=== PATIENT | female | born 1945 | race Caucasian/White ===

== ENCOUNTER → 2017-06-07 | Outpatient (CLI) | payer OTHER ==
[~2017-06-07] MED LIST: APIX1TAB3 PO; BNC/40 PO; CALC600T9 PO; CARV25TA2 PO; CETI10TA10 PO; CYAN1SUB2; CYAN5000 SL; FAMC1TAB PO; FLUT1INH INH; HYDR25TA4 PO; IBAN150T PO; LORA10CA2 PO; MAGN400T5 PO; NRV/10 PO; OMEP20CA59 PO; POTA-327 PO; PRVHFAIN; VENL150C56 PO; ZCR40 PO; ZINC25TA PO
[2017-06-07 14:22] LABS: ESTIMATED AVERAGE GLUCOSE 128 mg/dl; HA1C FLAG Normal (Normal)
[2017-06-07 14:43] LABS: ALT/SGPT 24 U/L (12-78); AST/SGOT 17 U/L (15-37); BLOOD UREA NITROGEN 16 mg/dl (7-18); BUN/CREATININE RATIO 23.9 (10-20); CALCIUM 8.4 mg/dl (8.5-10.1); CARBON DIOXIDE 26 mmol/L (21-32); CHLORIDE 107 mmol/L (98-107); CREATININE 0.66 mg/dl (0.60-1.20); GLUCOSE 108 mg/dl (70-99); POTASSIUM 3.7 mmol/L (3.5-5.1); SODIUM 141 mmol/L (136-145)
[2017-06-07 14:45] LABS: CHOLESTEROL 149 mg/dl (0-200); CHOLESTEROL/HDL RATIO 2.3; HDL CHOLESTEROL 64 mg/dl; LDL CHOLESTEROL CALCULATED 70 mg/dl; TRIGLYCERIDES 76 mg/dl (0-150); VERY LOW DENSITY LIPOPROT CALC 15 mg/dl
== END | disposition home or self-care (01) ==
LOC: C.LABMFLN 10:20
PROVIDERS: ATTEND Family Medicine
DX: E78.00 Pure hypercholesterolemia, unspecified (principal); I10 Essential (primary) hypertension; R73.03 Prediabetes

== ENCOUNTER → 2017-11-22 | Outpatient (CLI) | payer OTHER ==
--- NOTE | 2017-11-25 18:51 | POLYSOMNOGRAPH REPORT ---
CLINICAL DATA: The patient is a 72-year-old female who has a history of snoring and nocturnal dyspnea. She thinks she stops breathing when she sleeps. Her Ruskin Sleepiness Scale score is 7. She has a history of both hypertension and atrial fibrillation. She was referred for this study by Nerissa Jain PA-C. On the evening of 11/22/2017, a home sleep apnea test was performed using the Foldees type 3 monitor. RECORDING RESULTS: Total recording time was 10 hours. The patient's estimated sleep time was 9.6 hours. RESPIRATORY DATA: There were a total of 38 respiratory events including 2 obstructive apneas and 36 hypopneas. Hypopneas were scored according to the 4% desaturation rule. The FRANK was 4.0. This is at the upper limits of normal. The maximum respiratory event was 26 seconds. OXIMETRY DATA: The mean saturation for the night was 87%. The minimum saturation was 72%. The estimated time with saturations less than 89% was 367 minutes. HEART RATE DATA: The cardiac rates had a minimum of 54 and a mean heart rate of 68. SNORING DATA: Snoring was present throughout the night. IMPRESSIONS: 1. No definite evidence of significant obstructive sleep apnea. 2. Significant nocturnal hypoxia. RECOMMENDATIONS: 1. If the patient is not already on nocturnal oxygen therapy, would suggest doing an overnight pulse oximetry study to see if she is a candidate for nocturnal oxygen therapy. 2. Consideration could be given to doing an in-lab diagnostic polysomnography if the suspicion for sleep apnea remains very strong. Typically, home sleep studies may underestimate the amount of sleep apnea. 3. The patient has an elevated BMI of 37.97. Weight loss is advised.
== END | disposition home or self-care (01) ==
LOC: C.NEUR 11:14
PROVIDERS: ATTEND Physician Assistant
DX: R06.83 Snoring (principal)

== ENCOUNTER → 2017-12-02 | Outpatient (CLI) | payer OTHER ==
[~2017-12-02] VITALS: Ht 152.4 cm; Wt 92.9 kg
[2017-12-02 15:48] VITALS: BP 137/85; PULSE 87; Ht 152.4 cm; Wt 92.9 kg
== END | disposition home or self-care (01) ==
LOC: C.NEUR 13:52
PROVIDERS: ATTEND Physician Assistant
DX: G47.30 Sleep apnea, unspecified (principal); G47.19 Other hypersomnia

== ENCOUNTER → 2017-12-22 | Outpatient (CLI) | payer OTHER ==
--- NOTE | 2017-12-23 06:32 | PAP/PSG TECHNICIAN REPORT ---
[facility] Food Tester Polysomnogram Report Study name: None Report date: 12/23/2017 Study date: 12/22/2017 Referring Physician: Nerissa Jain PA-C, PA-C Name: SMOKER, PIERRE Connors Interpreting Physician: Hood Lozano D.O. Date of : 1945 Food Tester: Radha Castillo [facility]. Sex: Female Age: 72 Study Type: PSG Weight: 204 lbs Height: 72 years, Height 5' 0" BMI: 39.84 Medications: BREO ELIPTA 200 MCG/INH, VIT B-12 5000 MCG, FAMCICLOVIR 500 MG, ELIQUIS 5 MG, FUROSEMIDE 40 MG, PROAIR HFA, VENLAFAXINE 150 MG, VALSARTAN 80 MG, MONTELUKAST 10 MG, ALBUTEROL SULFATE, POTASSIUM CHLORIDE 10 MEQ, HYDROCORTISONE 2.5%, CARVEDILOL 25 MG, CALCIUM 600 + D, OMEPRAZOLE 20 MG, SIMVASTATIN 40 MG, MAGOX 241.3 MG, ZINC 25 MG, AMLODIPINE 10 MG, SALINE NASAL MIST, SOOTHE XP EYE DROPS Patient History 72 yr-old female here for a baseline study. She had a recent home sleep study with showed an AHI of 4. She stated that she still wakes up with a gasping sensation and snoring. She is having an in-lab study for further results. Her Comins scale is 7. The test was started on room air. ETCO2 testing is included in this study. Room 3 Parameters Monitored NPSG: E1-M2, E2-M1, Fp1-M2, Fp2-M1, F3-M2, F4-M2, F4-M1, C3-M2, C4-M2, C4-M1, O1-M2, O2-M2, O2-M1, T3-M2, T4-M1, P3-M2, P4-M1, CHIN1, CHIN2, HR, EKG, Legs, PFLOW, SNOR, FLOW, CFLOW, Tidal Volume, THOR, ABDO, SpO2, PLTH, CPRESS, ETCO2 Wave, ETCO2, pH Sleep Architecture Sleep Stages Time at Lights Off 10:31:31 PM STAGES Time (min.) TST (%) Time at Lights On 5:30:01 AM Wake 90.5 -- Total Recording Time (TRT) 418.50 min. N1 137.0 42 Total Sleep Period (TSP) 402.0 min. N2 191.0 58 Total Sleep Time (TST) 328.0min. N3 0.0 0 Awake Time 90.5 min. REM 0.0 0 Wake after Sleep Onset 74.0 min. Sleep Efficiency (SE) 78 % Sleep Onset Latency (ARON) 16.5 min. Number of Stage 1 Shifts None Awakenings 35 Stage Changes 154 Number of REM periods N/A REM 0.0 0 REM Latency NONE min. NREM 328.0 100 Body Position Analysis Supine Right Left Side Prone Vertical Total Sleep Time (min.) 0.0 38.5 289.5 328.00 0.0 0.3 Total Sleep Time (%) 0% 12% 88% 100 0% N/A% Total Sleep Time REM (min.) 0.0 0.0 0.0 None 0.0 0.0 Total Sleep Time NREM (min.) 0.0 38.5 289.5 None 0.0 0.0 Intermittent Wake (min.) 0.0 15.4 74.8 None 0.0 0.3 Total Sleep Period (%) 0% None None None None None Arousals Myoclonus (PLM) * Events Count Index Events Count Index Spontaneous 54 10 Events Awake (PLMW) 155 102.8 Respiratory 5 0.9 Events Asleep w/ Arousal (PLMA) 50 9.1 PLM 50 9 Events Asleep w/o Arousal (PLMS) 676 123.7 Snoring 45 8 Total Asleep 726 132.8 Total 149 27 Total 881 126 Respiratory Analysis * CA OA MA CH H RERA Total Count 0 0 0 0 14 3 14 Index 0.0 0.0 0.0 0 2.6 1 3.1 Mean Duration 0.0 0.0 0.0 0.00 15.5 18.0 15.9 Longest Duration 0.0 0.0 0.0 0.00 0.0 21.2 21.2 Respiratory Event Summary Total Supine ~Supine Right Left Prone REM NREM Apneas Count 0 N/A 0 0 0 N/A N/A 0 Index 0.0 N/A 0 0.0 0.0 N/A N/A 0 Hypopneas (4% Desat) Count 14 N/A 14 0 14 N/A N/A 14 Index 2.6 N/A 3 0.0 2.9 N/A N/A 2.6 Apneas & All Hypopneas Count 14 N/A 14 0 14 N/A N/A 14 Index 2.6 N/A 3 0 3 N/A N/A 2.6 Respiratory Events (Area Loss Prevention Manager+All Hyp+RERA) Count 14 N/A 17 2 15 N/A N/A 14 Index 3.1 N/A 3 3.1 3.1 N/A N/A 3.1 Respiratory Related Arousal Count 5 N/A 5 2 3 N/A N/A 5 Index 0.9 N/A 1 3 1 N/A N/A 1 Snoring Analysis Supine Right Left Prone REM NREM Total Snore duration 91.2 min Snores count N/A 290 3,271 N/A N/A 3,561 3,561 Snore mean duration 1.5 Sec Snores index N/A 452 678 N/A N/A 651.4 651.4 TST with snoring (%) 27.8% SpO2 Analysis Total REM NREM Awake <50% 0.0 min. 0.0 min. 0.0 min. 0.0 min. 51 - 60% 0.0 min. 0.0 min. 0.0 min. 0.0 min. 61 - 70% 0.1 min. 0.0 min. 0.0 min. 0.1 min. 71 - 80% 0.0 min. 0.0 min. 0.0 min. 0.0 min. 81 - 90% 409.5 min. 0.0 min. 327.8 min. 81.7 min. 91 - 100% 1.9 min. 0.0 min. 0.1 min. 1.8 min. Average 86 0 85 87 Minimum SpO2 70 N/A 80 70 Desaturation Event Index 10.9 0.0 11.7 8.6 # Desat. Events below 89% 76 N/A 64 12 Time(%) with Saturation below 89% 95.6 0.0 78.4 17.1 Time(min.) with Saturation below 89% 393.3 0.0 322.8 70.5 Heart Rate Analysis End Tidal CO2 Analysis Min (bpm) Max (bpm) Average (bpm) TSP (mins) % of TSP Awake 61 281 84 Above 55 mmHg 0.0 0.0 NREM 57 84 71 50-55 mmHg 0.0 0.0 REM N/A N/A N/A 45-50 mmHg 0.0 0.0 Overall 57 84 71 40-45 mmHg 0.3 0.1 35-40 mmHg 151.6 46.2 30-35 mmHg 168.9 51.5 Average ETCO2 0.2 Supplemental O2 Values Minimum O2 level: None Value Start Time End Time Food Tester Comments Ms. Vinson slept in the right and left positions. Cardiac arrhythmias were noted (please refer to the printout). PLMs were noted throughout the study. No bruxism noted. Snoring was noted and scored as a 3-4 on a scale of 1 through 5. (0=no snoring, 5=snoring loud enough to be heard through a closed door or down the [address] way). No REM was obtained. She awoke to use the restroom one time during the night. Mr. Vinson stated that she slept a little worse than usual. The final report will be interpreted and signed by a sleep physician. The completed physician report will then be placed in the patient medical record. Therapy (cm H2O) 0 TIB (min.) 418.5 TST (min.) 328.0 Sleep Onset (min.) 16.5 REM Onset From Sleep (min.) NONE Sleep Efficiency % 78 Wakefulness (%) 22 Wakefulness (min.) 90.5 NREM 1 (%) 42 NREM 1 (min.) 137.0 NREM 2 (%) 58 NREM 2 (min.) 191.0 NREM 3 (%) 0 NREM 3 (min.) 0.0 REM (%) 0 REM (min.) 0.0 # Arousals 149 Arousal Index 27 # Snore 3,561 Snore Index 651.4 AHI 2.6 AHI Supine N/A AHI Non-Supine 3 NREM AHI 2.6 REM AHI N/A RDI 3.1 # Obstructive Apnea 0 # Central Apnea 0 # Mixed Apnea 0 # Hypopneas 14 RERAs 3 Total Respiratory Events 18 Time Below SpO2 89% (min.) 322.8 Mean NREM SpO2 (%) 85 Mean REM SpO2 (%) N/A Mean Sleep SpO2 (%) 85 Min NREM SpO2 (%) 80 Min REM SpO2 (%) N/A Position Supine (min.) 0.0 Position Non-supine (min.) 328.0 LM Index Sleep 132.8 LM Index NREM 132.8 LM Index REM N/A Mean Heart Rate (bpm) 71 Min Heart Rate (bpm) 57
--- NOTE | 2017-12-26 14:15 | POLYSOMNOGRAPH REPORT ---
CLINICAL DATA: The patient is a 72-year-old female with a history of snoring and nocturnal gasping. A home sleep study done recently showed an apnea-hypopnea index of 4. An in-lab study was requested because of the patient's significant symptoms. Her Burke's sleepiness scale score is 7. She has a history of nocturnal hypoxia. SLEEP ARCHITECTURE: The total sleep period was 402 minutes. The total sleep time was 328 minutes. The sleep efficiency was moderately decreased to 78%. The sleep latency was 16.5 minutes. Wake after sleep onset was increased to 74 minutes. Sleep consisted of stage N1 42%, stage N2 58%, stage N3 0%, stage REM 0%. AROUSAL DATA: The patient had a total of 149 arousals including 54 spontaneous arousals, 5 respiratory arousals, 50 PLM arousals, and 45 snoring arousals. The arousal index was 27. PLM DATA: The patient had a total of 726 periodic limb movements of sleep for a PLM index of 132.8. There were arousals associated with limb movements for a PLM arousal index of 9.1. EKG: The underlying cardiac rhythm was atrial fibrillation. The cardiac rates ranged from 57-84 beats per minute with an average heart rate of 71 beats per minute. RESPIRATORY DATA: The patient had a total of 14 respiratory events, all hypopneas. Hypopneas were scored according to the 4% desaturation rule. The mean duration of the hypopneas was 15.5 seconds. There were 3 RERAs. The apnea-hypopnea index was 2.6 events per hour. This would suggest no significant sleep apnea. OXIMETRY DATA: The average saturation for the night was 86%. The minimum saturation was 70% but this likely was artifactual. There was, however, a total of 393.3 minutes with saturations less than 89%. RUG CUTTER HELPER COMMENTS: The patient slept in the right and left positions. Cardiac arrhythmia noted. PLMs were noted. No bruxism noted. Snoring was noted and scored as a 3-4 on a scale of 1 through 5. No REM sleep was obtained. She awakened to use the restroom one time during the night. IMPRESSIONS: 1. Periodic limb movement disorder. 2. Nocturnal hypoxia. 3. Atrial fibrillation. COMMENTS: The patient does not appear to have significant sleep apnea. Her sleep was very poorly consolidated, however. The exact reason for that is not clear. She does have very frequent limb movements with a modest number of arousals. Consideration could be given to a trial of medications for restless legs if clinically indicated. She was hypoxic throughout much of the night. The etiology for that is unknown. If she is not on nocturnal oxygen therapy already, it would be advised that she have an overnight pulse oximetry study done to qualify her for that. She does have underlying atrial fibrillation. RECOMMENDATIONS: 1. Advise an overnight pulse oximetry study to be done on room air to determine if she qualifies for nocturnal oxygen therapy. 2. In light of the severe frequency of the limb movements, advise checking serum ferritin level and treating with iron supplementation if the ferritin is less than 50. 3. Consideration is given to pharmacologic treatment of the underlying limb movements. 4. Weight loss is advised in light of the elevation of body mass index of 39.84.
== END | disposition home or self-care (01) ==
LOC: C.NEUR 20:00
PROVIDERS: ATTEND Physician Assistant
DX: G47.30 Sleep apnea, unspecified (principal); G47.19 Other hypersomnia; Z88.0 Allergy status to penicillin

== ENCOUNTER → 2017-12-30 | Outpatient (CLI) | payer OTHER ==
[~2017-12-30] VITALS: Ht 152.4 cm; Wt 94.4 kg
[2017-12-30 15:04] VITALS: BP 128/84; PULSE 82; Ht 152.4 cm; Wt 94.4 kg
== END | disposition home or self-care (01) ==
LOC: C.NEUR 14:25
PROVIDERS: ATTEND Physician Assistant
DX: G47.34 Idiopathic sleep related nonobstructive alveolar hypoventilation (principal); R25.8 Other abnormal involuntary movements; J45.909 Unspecified asthma, uncomplicated

== ENCOUNTER → 2018-01-10 | Outpatient (CLI) | payer OTHER ==
[2018-01-10 17:51] LABS: HEMATOCRIT 41.5 % (37-47); HEMOGLOBIN 13.5 g/dL (12.0-16.0); IG# 0.01 K/uL (0.00-0.02); LYMPH % 23.9 %; MEAN CORPUSCULAR HEMOGLOBIN 26.7 pg (25-34); MEAN CORPUSCULAR HGB CONC 32.5 g/dl (32-36); MEAN PLATELET VOLUME 11.8 fL (7.4-10.4); MONO % 9.5 %; MONO ABS # 0.48 K/uL (0.11-0.59); NEUT % 66.4 %; NEUT ABS # 3.34 K/uL (1.4-6.5); PLATELET COUNT 229 K/uL (130-400); RED CELL DISTRIBUTION WIDTH CV 15.1 % (11.5-14.5); RED CELL DISTRIBUTION WIDTH SD 44.8 fL (36.4-46.3); WHITE BLOOD COUNT 5.03 K/uL (4.8-10.8)
[2018-01-10 18:28] LABS: AST/SGOT 19 U/L (15-37); BLOOD UREA NITROGEN 18 mg/dl (7-18); CARBON DIOXIDE 32 mmol/L (21-32); CREATININE 0.79 mg/dl (0.60-1.20); SODIUM 143 mmol/L (136-145)
[2018-01-10 19:48] LABS: LDL CHOLESTEROL CALCULATED 61 mg/dl
[2018-01-10 19:49] LABS: CALCIUM 8.5 mg/dl (8.5-10.1); GLUCOSE 122 mg/dl (70-99)
[2018-01-10 19:53] LABS: ALBUMIN 3.8 gm/dl (3.4-5.0)
[2018-01-10 19:57] LABS: ALKALINE PHOSPHATASE 130 U/L (45-117); ALT/SGPT 24 U/L (12-78); CHOLESTEROL 136 mg/dl (0-200); TOTAL PROTEIN 7.6 gm/dl (6.4-8.2)
== END | disposition home or self-care (01) ==
LOC: C.LABMFLN 11:30
PROVIDERS: ATTEND Family Medicine
DX: R73.03 Prediabetes (principal); E78.5 Hyperlipidemia, unspecified; I10 Essential (primary) hypertension; I48.2 Chronic atrial fibrillation; R25.8 Other abnormal involuntary movements

== ENCOUNTER → 2018-04-07 | Outpatient (CLI) | payer OTHER ==
[~2018-04-07] VITALS: Ht 152.4 cm; Wt 89.1 kg
[2018-04-07 13:05] VITALS: BP 144/83; PULSE 75; Ht 152.4 cm; Wt 89.1 kg
== END | disposition home or self-care (01) ==
LOC: C.NEUR 12:40
PROVIDERS: ATTEND Physician Assistant
DX: G47.30 Sleep apnea, unspecified (principal); R25.8 Other abnormal involuntary movements; G47.19 Other hypersomnia; F43.20 Adjustment disorder, unspecified; I48.1 Persistent atrial fibrillation; I10 Essential (primary) hypertension; Z79.899 Other long term (current) drug therapy